=== PATIENT | female | born 2000 | race Caucasian/White ===

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

== ENCOUNTER 2019-04-20 11:28 | Emergency (ER) | payer OTHER ==
[~2019-04-20] VITALS: Ht 167.6 cm; Wt 68.7 kg
[2019-04-20 12:11] LABS: BASO # 0.1 10^3/uL (0.0-0.2); BASO % 0.3 % (0.0-1.0); EOS % 0.2 % (0.0-3.0); HEMATOCRIT 52.2 % (36.0-47.0); HEMOGLOBIN 17.2 g/dl (12.0-15.5); LYMPH # 0.5 10^3/uL (1.5-5.0); LYMPH % 2.7 % (24.0-44.0); MEAN CORPUSCULAR HEMOGLOBIN 31.4 pg (27.0-33.0); MEAN CORPUSCULAR VOLUME 95.4 fl (80.0-96.0); MONO # 1.1 10^3/uL (0.0-0.8); MONO % 5.5 % (0.0-5.0); NEUTROPHILS # 17.7 10^3/uL (1.5-8.5); NEUTROPHILS % 90.8 % (36.0-66.0); PLATELET COUNT, AUTOMATED 288 10^3/uL (150-450); RED BLOOD COUNT 5.47 10^6/uL (4.00-5.40); WHITE BLOOD COUNT 19.5 10^3/uL (4.0-10.0)
[2019-04-20 12:39] LABS: ALBUMIN 3.9 GM/DL (3.2-5.2); ALT/SGPT 18 U/L (12-78); BILIRUBIN,DIRECT 0.2 MG/DL (0.0-0.2); BILIRUBIN,TOTAL 1.2 MG/DL (0.2-1.0); BLOOD UREA NITROGEN 17 MG/DL (7-18); CARBON DIOXIDE LEVEL 24 MEQ/L (21-32); CHLORIDE LEVEL 109 MEQ/L (98-107); CREATININE FOR GFR 1.04 MG/DL (0.55-1.30); GLUCOSE, FASTING 120 MG/DL (70-100); LIPASE 68 U/L (73-393); POTASSIUM SERUM 4.8 MEQ/L (3.5-5.1); SODIUM LEVEL 142 MEQ/L (136-145)
[2019-04-20] MEDS ORDERED: MORPHINE 4 MG/ML 1ML VIAL/SYRINGE (J2270) IV ONE (12:45)
[2019-04-20] MEDS ORDERED: ONDANSETRON 4MG/2ML VIAL (J2405) IV ONE (12:45)
[2019-04-20] MEDS ORDERED: NS 1,000 ML IV ONE (12:45)
[2019-04-20] MEDS ORDERED: ISOVUE-370 76% 100ML VIAL (Q9967) As Ordered ONE (13:56)
[2019-04-20] MEDS ORDERED: ONDA4TAB6 PO (15:03)
[2019-04-20 15:29] VITALS: BP 115/61
--- NOTE | 2019-04-20 18:14 | REP ---
CT abdomen pelvis with IV but without oral contrast: History: Abdomen pain. Leukocytosis. No comparison imaging. CT contrast dose: 100 ml of intravenous Isovue 370. 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 The lung bases are clear on axial CT images. The liver and the spleen are normal in size homogeneous in texture. No adrenal lesion is seen on either side. No abnormalities noted in the gallbladder or in the pancreas. The kidneys enhance symmetrically and are morphologically intact. No retroperitoneal mass or adenopathy is observed. There are scattered small bowel mesenteric lymph nodes which are normal in size. There are two or three of these in the right lower quadrant as well. A normal appendix is seen at the tip of the cecum extending into the upper pelvis. A retroverted retroflexed uterus is seen. No uterine abnormality is observed. Normal ovaries are seen bilaterally. Small and large intestinal bowel loops are unremarkable. Impression: There are multiple normal-sized but somewhat numerous small bowel mesenteric lymph nodes question mesenteric adenitis. Normal appendix seen. Retroverted uterus. Normal ovaries. Otherwise negative. Electronically Signed by Tunde Martin MD 04/20/2019 07:59 P
== END 2019-04-20 15:31 | disposition home or self-care (01) ==
LOC: M ED 11:28
DX: I88.0 Nonspecific mesenteric lymphadenitis (principal); R11.2 Nausea with vomiting, unspecified; R19.7 Diarrhea, unspecified; D72.829 Elevated white blood cell count, unspecified; Z88.1 Allergy status to other antibiotic agents; Z88.2 Allergy status to sulfonamides; F17.210 Nicotine dependence, cigarettes, uncomplicated
CPT/HCPCS: 74177; 80048; 80076; 81001; 83690; 84702; 85025; 87086; 96361; 96374; 96375; 99284; J2270; J2405; Q9967